=== PATIENT | female | born 1990 | race Caucasian/White ===

== ENCOUNTER 2018-12-18 22:42 | Emergency (ER) | payer MEDICAID ==
--- NOTE | 2018-12-18 23:28 | EDM.PDOC ---
ED HPI GENERAL MEDICAL PROBLEM - General Chief Complaint: Lower Extremity Injury/Pain Stated Complaint: RIGHT KNEE PAIN Time Seen by Provider: 12/18/18 23:20 Source of Information: Reports: Patient History Limitations: Reports: No Limitations - History of Present Illness INITIAL COMMENTS - FREE TEXT/NARRATIVE: 28-year-old female fell forward onto her right knee a few hours ago, now having pain in the knee and pain with weightbearing. Pain is mostly anterior just distal to the patella. No other injury. Onset: Sudden Duration: Hour(s): (2 hours) Location: Reports: Lower Extremity, Right Associated Symptoms: Reports: No Other Symptoms right knee Pain Score (Numeric/FACES): 5 - Related Data Allergies Allergy/AdvReac Type Severity Reaction Status Date / Time metoclopramide [From Reglan] Allergy Airway Verified 12/18/18 23:10 Tightness Home Meds: Home Meds Levothyroxine 150 mcg PO DAILY 12/18/18 [History] Past Medical History [employer] History: Reports: Musculoskeletal History: Reports: Fracture, Other (See Below) Other Musculoskeletal History: right fiblula fracture Psychiatric History: Reports: Anxiety Endocrine/Metabolic History: Reports: Hypothyroidism Oncologic (Cancer) History: Reports: Other (See Below) Other Oncologic History: precancerous lesion on labia - Infectious Disease History Infectious Disease History: Reports: Chicken Pox - Past Surgical History Female Surgical History: Reports: Other (See Below) Other Female Surgeries/Procedures: bilateral salpinoectomy Social & Family History - Tobacco Use Smoking Status *Q: Never Smoker - Caffeine Use Caffeine Use: Reports: Coffee - Recreational Drug Use Recreational Drug Use: No Review of Systems - Review of Systems Review Of Systems: See Below Constitutional: Denies: Fever Respiratory: Denies: Shortness of Breath GI/Abdominal: Denies: Nausea, Vomiting Skin: Reports: Bruising, Other (Abrasion has formed on the anterior right knee) Psychiatric: Reports: No Symptoms ED EXAM, GENERAL - Physical Exam Exam: See Below Exam Limited By: No Limitations General Appearance: Alert, No Apparent Distress Head: Atraumatic Respiratory/Chest: No Respiratory Distress Extremities: Other (Patient has redness, superficial abrasion on the anterior aspect of the knee distal to the patella over the tibial plateau. There is no significant effusion, she does have palpation tenderness over the lateral knee. Ligaments are intact.) Course - Vital Signs Last Recorded V/S: Last Vital Signs Temp 97.4 F 12/18/18 23:12 Pulse 109 H 12/18/18 23:12 Resp 16 12/18/18 23:12 BP 121/87 12/18/18 23:12 Pulse Ox 94 L 12/18/18 23:12 - Orders/Labs/Meds Meds: Medications Discontinued Medications Generic Name Dose Route Start Last Admin Trade Name Colleen PRN Reason Stop Dose Admin Ibuprofen 800 mg 12/18/18 23:52 12/18/18 23:57 Motrin PO 12/18/18 23:53 800 mg ONETIME ONE Administration - Re-Assessments/Exams Free Text/Narrative Re-Assessment/Exam: 12/18/18 23:28 A right knee x-ray was obtained. 12/18/18 23:48 Knee x-ray is negative, six-inch Darrick wrap was applied to the knee and the patient will increase activity as tolerated. Departure - Departure Time of Disposition: 00:02 Disposition: Home, Self-Care 01 Condition: Good Clinical Impression: Contusion of knee, right Qualifiers: Encounter type: initial encounter Qualified Code(s): S80.01XA - Contusion of right knee, initial encounter - Discharge Information Instructions: Contusion, [id number] Referrals: PCP,None [Primary Care Provider] - Forms: ED Department Discharge Care Plan Goals: Wrap knee for comfort, ice may help, and anti-inflammatories would also be beneficial. Increase activity as tolerated and recheck in 5-7 days if not improving satisfactorily.
[2018-12-18] MEDS ORDERED: Ibuprofen 800 MG Tab PO ONE (23:52)
--- NOTE | 2018-12-19 00:18 | CRLCR ---
3 VIEWS right knee.. INDICATION: Pain. IMPRESSION: No visualized fracture. Alignments anatomic. Joint spaces unremarkable. Dictated by Selvin Dang MD @ Dec 19 2018 12:16AM Signed by Dr. Selvin Dang @ Dec 19 2018 12:16AM
== END 2018-12-19 00:01 | disposition home or self-care (01) ==
LOC: JP.ED 22:42
DX: S80.01XA Contusion of right knee, initial encounter (principal); E03.9 Hypothyroidism, unspecified; Z88.8 Allergy status to other drugs, medicaments and biological substances; Z79.899 Other long term (current) drug therapy; W01.0XXA Fall on same level from slipping, tripping and stumbling without subsequent striking against object, initial encounter
CPT/HCPCS: 73562; 99283; A9270